=== PATIENT | male | born 1985 | race Two or more races ===

== ENCOUNTER 2019-08-17 03:06 | Emergency (ER) | payer SELFPAY ==
[~2019-08-17] VITALS: Ht 167.6 cm; Wt 90.7 kg
[2019-08-17 03:45] VITALS: BP 134/74
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
--- NOTE | 2019-08-17 05:50 | NUR ---
Patient discharged to home in stable condition. Written and verbal after care instructions given. Patient verbalizes understanding of instruction.
== END 2019-08-17 05:53 | disposition home or self-care (01) ==
LOC: ER 03:10
DX: S20.212A Contusion of left front wall of thorax, initial encounter (principal); F12.10 Cannabis abuse, uncomplicated; F17.210 Nicotine dependence, cigarettes, uncomplicated; Z98.890 Other specified postprocedural states; X58.XXXA Exposure to other specified factors, initial encounter; Y93.89 Activity, other specified; Y92.89 Other specified places as the place of occurrence of the external cause; Y99.8 Other external cause status
CPT/HCPCS: 71100-TC